=== PATIENT | male | born 1945 | race Caucasian/White ===

== ENCOUNTER 2023-04-08 12:44 | Inpatient (IN) | payer OTHER, BC ==
[~2023-04-08] VITALS: Ht 180.3 cm; Wt 92.7 kg
[2023-04-08 12:51] VITALS: BP_SYST 100; PULSE 82; RESP 18; TEMP 97.3; O2SAT 96
[2023-04-08 15:10] LABS: BASOPHILS % (AUTO) 0.4 % (0.0-2.0); EOSINOPHILS % (AUTO) 0.2 % (0.0-4.0); HEMATOCRIT 29.8 % (36-54); HEMOGLOBIN 10.5 g/dL (14.0-18.0); LYMPHOCYTES # (AUTO) 1.3 K/uL (1.0-5.5); LYMPHOCYTES % (AUTO) 12.2 % (20.5-51.5); MEAN CORPUSCULAR HEMOGLOBIN 33 pg (27-31); MEAN CORPUSCULAR HGB CONC 35 % (32-36); MEAN CORPUSCULAR VOLUME 92 fL (79.0-98.0); MONOCYTES # (AUTO) 0.7 K/uL (0.0-1.0); NEUTROPHILS # (AUTO) 8.8 K/uL (1.8-7.7); NEUTROPHILS % (AUTO) 81.2 % (40.0-70.0); PLATELET COUNT (AUTO) 370 K/uL (130-430); RED BLOOD CELL COUNT(AUTO) 3.24 MIL/uL (4.2-6.2); RED CELL DISTRIBUTION WIDTH 13.4 % (9.0-15.0); WHITE BLOOD COUNT (AUTO) 10.8 K/uL (4.8-10.8)
[2023-04-08 15:33] LABS: ALANINE AMINOTRANSFERASE 41 U/L (12-78); ALBUMIN 2.8 g/dL (3.4-4.8); ANION GAP 16 (5-15); ASPARTATE AMINOTRANSFERASE 17 U/L (10-37); BILIRUBIN,DIRECT 0.2 mg/dL (0.0-0.3); CALCIUM 9.7 mg/dL (8.4-11.0); CARBON DIOXIDE 19 mmol/L (23-29); CHLORIDE 105 mmol/L (98-107); CREATININE 2.55 mg/dL (0.55-1.30); GLUCOSE 147 mg/dL (74-106); POTASSIUM 4.1 mmol/L (3.5-5.1); SODIUM SERUM 140 mmol/L (136-145); TOTAL BILIRUBIN 0.7 mg/dL (0.0-1.0); TOTAL PROTEIN, SERUM 5.6 g/dL (6.4-8.3)
[2023-04-08] MEDS: NACL 0.9% 1,000 ML IV ONE (15:33)
[2023-04-08] MEDS ORDERED: PANTOPRAZOLE SODIUM 40 MG/VIAL (PROTONIX) ONE ×2 (15:41→18:00)
[2023-04-08 15:42] LABS: UREA NITROGEN, BLOOD 132 mg/dL (8-21)
[2023-04-08] MEDS: PANTOPRAZOLE SODIUM 80 MG in NS 100 ML IV ONE (15:57)
[2023-04-08] MEDS: NS 500 ML IV ONE (16:00)
[2023-04-08 16:11] LABS: INR 1.1 (0.80-1.20); PROTHROMBIN TIME 11.6 SECS (9.5-12.5)
[2023-04-08] MEDS ORDERED: DEXTROSE 50% JECT 50 ML DISP.SYRIN IVP PRN (17:30)
[2023-04-08] MEDS: METOCLOPRAMIDE HCL 10 MG/2 ML VIAL IVP ONE (18:00)
[2023-04-08] MEDS: ONDANSETRON HCL 4 MG/2 ML VIAL IVP PRN (18:11)
[2023-04-08] MEDS: MORPHINE 2 MG/ML INJ. SYRINGE IVP PRN (18:11)
[2023-04-08] MEDS: PANTOPRAZOLE SODIUM 40 MG in NS 50 ML IV SCH (18:12)
[2023-04-08] MEDS: NACL 0.9% 1,000 ML IV SCH (19:40)
[2023-04-08] MEDS ORDERED: METO-544 PO (20:05)
[2023-04-08] MEDS ORDERED: EMPA25TA PO (20:05)
[2023-04-08] MEDS ORDERED: METF-381 PO (20:05)
[2023-04-08] MEDS ORDERED: ATOR10TA68 PO (20:05)
[2023-04-08] MEDS ORDERED: BENA40TA89 PO (20:05)
[2023-04-08] MEDS ORDERED: FENO48TA8 PO (20:05)
[2023-04-08] MEDS ORDERED: SITA100T11 PO (20:05)
[2023-04-08] MEDS ORDERED: GLIP5TAB13 PO (20:05)
[2023-04-08] MEDS ORDERED: LATA2.5D14 LEFT EYE (20:05)
[2023-04-08] MEDS ORDERED: AMLO10TA88 PO (20:06)
[2023-04-08] MEDS ORDERED: METOPROLOL TARTRATE 25 MG TABLET PO SCH (21:00)
[2023-04-08 21:49] VITALS: BP_SYST 110; PULSE 65; RESP 18; TEMP 98.2; O2SAT 97
[2023-04-08] MEDS: PANTOPRAZOLE SODIUM 40 MG/VIAL (PROTONIX) ONE (22:40)
[2023-04-08] MEDS: ATORVASTATIN 20 MG TABLET PO SCH (22:53)
[2023-04-08] MEDS: cefTRIAXone 1 GM in D5W 50 ML IV SCH (23:13)
[2023-04-08] MEDS: METOCLOPRAMIDE HCL 10 MG/2 ML VIAL IVP SCH (23:14)
[2023-04-08] MEDS: ZOLPIDEM TARTRATE 5 MG TABLET PO PRN (23:40)
[2023-04-08] MEDS: cefTRIAXone 1 GM IVPB PREMIX 50 ML IV ONE (23:50)
[2023-04-09] VITALS (14 sets, daily range): BP systolic 96–141; PULSE 63–103; RESP 16–20; TEMP 96.3–98; O2SAT 95–100
[2023-04-09 01:12] LABS: BILIRUBIN,URINE NEGATIVE (NEGATIVE); BLOOD, URINE NEGATIVE (NEGATIVE); CLARITY/URINE CLEAR (CLEAR); COLOR,URINE YELLOW (YELLOW); GLUCOSE,URINE 3+ (NEGATIVE); KETONES,URINE NEGATIVE (NEGATIVE); LEUKOCYTE ESTERASE ,URINE NEGATIVE (NEGATIVE); NITRITE, URINE NEGATIVE (NEGATIVE); PH,URINE 5.5 (5.0-8.0); PROTEIN URINE NEGATIVE (NEGATIVE); UROBILINOGEN,URINE 0.2 (0.2-1.0)
[2023-04-09] MEDS: PANTOPRAZOLE SODIUM 40 MG/VIAL (PROTONIX) ONE ×3 (02:00→21:41)
[2023-04-09] MEDS: INSULIN LISPRO SLIDING SCALE 100 UNITS/ML, 3 ML VIAL (humaLOG) SUBCUT PRN (06:02)
[2023-04-09 07:10] LABS: ALANINE AMINOTRANSFERASE 41 U/L (12-78); ALBUMIN 2.7 g/dL (3.4-4.8); ANION GAP 9 (5-15); ASPARTATE AMINOTRANSFERASE 15 U/L (10-37); CALCIUM 9.1 mg/dL (8.4-11.0); CARBON DIOXIDE 22 mmol/L (23-29); CHLORIDE 110 mmol/L (98-107); CHOLESTEROL 84 mg/dL (<200); CREATININE 2.17 mg/dL (0.55-1.30); GLUCOSE 144 mg/dL (74-106); HDL CHOLESTEROL 30 mg/dL (>45); POTASSIUM 4.2 mmol/L (3.5-5.1); SODIUM SERUM 141 mmol/L (136-145); TOTAL BILIRUBIN 0.4 mg/dL (0.0-1.0); TOTAL PROTEIN, SERUM 5.1 g/dL (6.4-8.3); TRIGLYCERIDES 159 mg/dL (30-150)
[2023-04-09 08:32] LABS: UREA NITROGEN, BLOOD 125 mg/dL (8-21)
[2023-04-09] MEDS: TAMSULOSIN HCL 0.4 MG CAP PO SCH (09:00)
[2023-04-09 11:15] LABS: HEMATOCRIT 26.6 % (36-54); HEMOGLOBIN 8.9 g/dL (14.0-18.0); RED BLOOD CELL COUNT(AUTO) 2.79 MIL/uL (4.2-6.2)
[2023-04-09 11:16] LABS: BASOPHILS % (AUTO) 0.6 % (0.0-2.0); EOSINOPHILS # (AUTO) 0.1 K/uL (0.0-0.4); EOSINOPHILS % (AUTO) 0.5 % (0.0-4.0); LYMPHOCYTES # (AUTO) 1.5 K/uL (1.0-5.5); MEAN CORPUSCULAR HEMOGLOBIN 32 pg (27-31); MEAN CORPUSCULAR HGB CONC 33 % (32-36); MEAN CORPUSCULAR VOLUME 95 fL (79.0-98.0); MONOCYTES # (AUTO) 0.9 K/uL (0.0-1.0); MONOCYTES % (AUTO) 8.6 % (1.7-9.3); NEUTROPHILS # (AUTO) 8.4 K/uL (1.8-7.7); NEUTROPHILS % (AUTO) 76.3 % (40.0-70.0); PLATELET COUNT (AUTO) 302 K/uL (130-430); RED CELL DISTRIBUTION WIDTH 13.7 % (9.0-15.0)
[2023-04-09] MEDS: fentaNYL CITRATE/PF 100 MCG/2 ML AMP ONE (11:16)
[2023-04-09] MEDS: MIDAZOLAM HCL 5 MG/5 ML VIAL ONE (11:16)
[2023-04-09] MEDS: EPINEPHrine JECT 0.1 MG/ML SYR ONE (11:47)
[2023-04-09] MEDS: SIMETHICONE 40 MG/0.6 ML ML ONE (11:50)
[2023-04-09 12:10] LABS: HEMOGLOBIN A1C 8.07 % (<5.7)
[2023-04-09 15:34] LABS: BASOPHILS % (AUTO) 0.4 % (0.0-2.0); EOSINOPHILS % (AUTO) 0.3 % (0.0-4.0); HEMATOCRIT 22.7 % (36-54); HEMOGLOBIN 7.9 g/dL (14.0-18.0); LYMPHOCYTES # (AUTO) 0.9 K/uL (1.0-5.5); LYMPHOCYTES % (AUTO) 8.3 % (20.5-51.5); MEAN CORPUSCULAR HEMOGLOBIN 32 pg (27-31); MEAN CORPUSCULAR HGB CONC 35 % (32-36); MEAN CORPUSCULAR VOLUME 94 fL (79.0-98.0); MONOCYTES # (AUTO) 0.6 K/uL (0.0-1.0); MONOCYTES % (AUTO) 6.1 % (1.7-9.3); NEUTROPHILS # (AUTO) 9.1 K/uL (1.8-7.7); NEUTROPHILS % (AUTO) 84.9 % (40.0-70.0); PLATELET COUNT (AUTO) 303 K/uL (130-430); RED BLOOD CELL COUNT(AUTO) 2.43 MIL/uL (4.2-6.2); RED CELL DISTRIBUTION WIDTH 13.5 % (9.0-15.0); WHITE BLOOD COUNT (AUTO) 10.7 K/uL (4.8-10.8)
[2023-04-09 22:37] LABS: BASOPHILS % (AUTO) 0.2 % (0.0-2.0); EOSINOPHILS % (AUTO) 0.3 % (0.0-4.0); LYMPHOCYTES # (AUTO) 1.1 K/uL (1.0-5.5); LYMPHOCYTES % (AUTO) 10.7 % (20.5-51.5); MEAN CORPUSCULAR HEMOGLOBIN 33 pg (27-31); MEAN CORPUSCULAR HGB CONC 34 % (32-36); MEAN CORPUSCULAR VOLUME 95 fL (79.0-98.0); MONOCYTES # (AUTO) 0.8 K/uL (0.0-1.0); MONOCYTES % (AUTO) 7.7 % (1.7-9.3); NEUTROPHILS # (AUTO) 8.1 K/uL (1.8-7.7); NEUTROPHILS % (AUTO) 81.1 % (40.0-70.0); PLATELET COUNT (AUTO) 285 K/uL (130-430); RED BLOOD CELL COUNT(AUTO) 2.11 MIL/uL (4.2-6.2); RED CELL DISTRIBUTION WIDTH 13.8 % (9.0-15.0)
[2023-04-09 23:10] LABS: HEMOGLOBIN 6.9 g/dL (14.0-18.0)
[2023-04-10] VITALS (24 sets, daily range): BP systolic 97–151; PULSE 84–137; RESP 12–20; TEMP 97.1–98.3; O2SAT 96–100
[2023-04-10] MEDS: LORazepam 2 MG/ML VIAL IVP PRN (01:43)
[2023-04-10 09:50] LABS: BASOPHILS % (AUTO) 0.3 % (0.0-2.0); EOSINOPHILS % (AUTO) 0.2 % (0.0-4.0); HEMOGLOBIN 9.6 g/dL (14.0-18.0); LYMPHOCYTES # (AUTO) 0.9 K/uL (1.0-5.5); LYMPHOCYTES % (AUTO) 8.2 % (20.5-51.5); MEAN CORPUSCULAR HEMOGLOBIN 32 pg (27-31); MEAN CORPUSCULAR HGB CONC 34 % (32-36); MEAN CORPUSCULAR VOLUME 94 fL (79.0-98.0); MONOCYTES # (AUTO) 0.8 K/uL (0.0-1.0); MONOCYTES % (AUTO) 7.9 % (1.7-9.3); NEUTROPHILS # (AUTO) 8.6 K/uL (1.8-7.7); NEUTROPHILS % (AUTO) 83.4 % (40.0-70.0); PLATELET COUNT (AUTO) 285 K/uL (130-430); RED BLOOD CELL COUNT(AUTO) 2.97 MIL/uL (4.2-6.2); RED CELL DISTRIBUTION WIDTH 14.3 % (9.0-15.0); WHITE BLOOD COUNT (AUTO) 10.4 K/uL (4.8-10.8)
[2023-04-10 09:56] LABS: ANION GAP 7 (5-15); CALCIUM 8.7 mg/dL (8.4-11.0); CARBON DIOXIDE 22 mmol/L (23-29); CREATININE 1.58 mg/dL (0.55-1.30); GLUCOSE 219 mg/dL (74-106); POTASSIUM 4.3 mmol/L (3.5-5.1); SODIUM SERUM 149 mmol/L (136-145); UREA NITROGEN, BLOOD 92 mg/dL (8-21)
[2023-04-10 09:58] LABS: CHLORIDE 120 mmol/L (98-107)
[2023-04-10] MEDS: 0.45% NACL 1,000 ML IV SCH (10:30)
[2023-04-10 13:32] LABS: BASOPHILS % (AUTO) 0.3 % (0.0-2.0); EOSINOPHILS % (AUTO) 0.1 % (0.0-4.0); HEMATOCRIT 26.9 % (36-54); HEMOGLOBIN 9.1 g/dL (14.0-18.0); LYMPHOCYTES # (AUTO) 0.9 K/uL (1.0-5.5); LYMPHOCYTES % (AUTO) 8.4 % (20.5-51.5); MEAN CORPUSCULAR HEMOGLOBIN 32 pg (27-31); MEAN CORPUSCULAR HGB CONC 34 % (32-36); MEAN CORPUSCULAR VOLUME 95 fL (79.0-98.0); MONOCYTES # (AUTO) 0.9 K/uL (0.0-1.0); MONOCYTES % (AUTO) 8.4 % (1.7-9.3); NEUTROPHILS # (AUTO) 9.2 K/uL (1.8-7.7); NEUTROPHILS % (AUTO) 82.8 % (40.0-70.0); PLATELET COUNT (AUTO) 285 K/uL (130-430); RED BLOOD CELL COUNT(AUTO) 2.83 MIL/uL (4.2-6.2); RED CELL DISTRIBUTION WIDTH 14.3 % (9.0-15.0); WHITE BLOOD COUNT (AUTO) 11.1 K/uL (4.8-10.8)
[2023-04-10] MEDS: ALPRAZolam 0.25 MG TABLET PO ONE (20:24)
[2023-04-10] MEDS: PANTOPRAZOLE SODIUM 40 MG in NS 50 ML IV SCH (21:56)
[2023-04-10 22:04] LABS: BASOPHILS % (AUTO) 0.3 % (0.0-2.0); EOSINOPHILS % (AUTO) 0.1 % (0.0-4.0); HEMATOCRIT 24.5 % (36-54); HEMOGLOBIN 8.4 g/dL (14.0-18.0); LYMPHOCYTES # (AUTO) 1.2 K/uL (1.0-5.5); LYMPHOCYTES % (AUTO) 13.3 % (20.5-51.5); MEAN CORPUSCULAR HEMOGLOBIN 33 pg (27-31); MEAN CORPUSCULAR HGB CONC 34 % (32-36); MEAN CORPUSCULAR VOLUME 95 fL (79.0-98.0); MONOCYTES # (AUTO) 0.8 K/uL (0.0-1.0); MONOCYTES % (AUTO) 8.6 % (1.7-9.3); NEUTROPHILS # (AUTO) 7.2 K/uL (1.8-7.7); NEUTROPHILS % (AUTO) 77.7 % (40.0-70.0); PLATELET COUNT (AUTO) 250 K/uL (130-430); RED BLOOD CELL COUNT(AUTO) 2.58 MIL/uL (4.2-6.2); RED CELL DISTRIBUTION WIDTH 14.3 % (9.0-15.0); WHITE BLOOD COUNT (AUTO) 9.2 K/uL (4.8-10.8)
[2023-04-11] VITALS (22 sets, daily range): BP systolic 109–149; PULSE 89–122; RESP 14–22; TEMP 97.1–98.5; O2SAT 94–99
[2023-04-11 05:38] LABS: BASOPHILS % (AUTO) 0.1 % (0.0-2.0); EOSINOPHILS % (AUTO) 0.2 % (0.0-4.0); HEMOGLOBIN 8.1 g/dL (14.0-18.0); LYMPHOCYTES # (AUTO) 1.5 K/uL (1.0-5.5); LYMPHOCYTES % (AUTO) 11.4 % (20.5-51.5); MEAN CORPUSCULAR HEMOGLOBIN 33 pg (27-31); MEAN CORPUSCULAR HGB CONC 34 % (32-36); MEAN CORPUSCULAR VOLUME 96 fL (79.0-98.0); MONOCYTES # (AUTO) 1.1 K/uL (0.0-1.0); MONOCYTES % (AUTO) 8.1 % (1.7-9.3); NEUTROPHILS # (AUTO) 10.4 K/uL (1.8-7.7); NEUTROPHILS % (AUTO) 80.2 % (40.0-70.0); PLATELET COUNT (AUTO) 284 K/uL (130-430); RED BLOOD CELL COUNT(AUTO) 2.49 MIL/uL (4.2-6.2); RED CELL DISTRIBUTION WIDTH 14.7 % (9.0-15.0)
[2023-04-11 10:14] LABS: ALANINE AMINOTRANSFERASE 33 U/L (12-78); ALBUMIN 2.5 g/dL (3.4-4.8); ANION GAP 12 (5-15); ASPARTATE AMINOTRANSFERASE 16 U/L (10-37); CALCIUM 8.7 mg/dL (8.4-11.0); CARBON DIOXIDE 21 mmol/L (23-29); CREATININE 1.44 mg/dL (0.55-1.30); GLUCOSE 247 mg/dL (74-106); POTASSIUM 3.8 mmol/L (3.5-5.1); SODIUM SERUM 155 mmol/L (136-145); TOTAL BILIRUBIN 0.4 mg/dL (0.0-1.0); TOTAL PROTEIN, SERUM 5.1 g/dL (6.4-8.3); UREA NITROGEN, BLOOD 68 mg/dL (8-21)
[2023-04-11 10:20] LABS: CHLORIDE 122 mmol/L (98-107)
[2023-04-11] MEDS: D5W 1,000 ML IV SCH (11:55)
[2023-04-11 15:03] LABS: BASOPHILS % (AUTO) 0.3 % (0.0-2.0); EOSINOPHILS % (AUTO) 0.4 % (0.0-4.0); HEMOGLOBIN 7.1 g/dL (14.0-18.0); LYMPHOCYTES % (AUTO) 10.5 % (20.5-51.5); MEAN CORPUSCULAR HEMOGLOBIN 33 pg (27-31); MEAN CORPUSCULAR HGB CONC 34 % (32-36); MEAN CORPUSCULAR VOLUME 96 fL (79.0-98.0); MONOCYTES # (AUTO) 0.8 K/uL (0.0-1.0); MONOCYTES % (AUTO) 7.8 % (1.7-9.3); NEUTROPHILS # (AUTO) 7.8 K/uL (1.8-7.7); PLATELET COUNT (AUTO) 270 K/uL (130-430); RED BLOOD CELL COUNT(AUTO) 2.16 MIL/uL (4.2-6.2); RED CELL DISTRIBUTION WIDTH 14.5 % (9.0-15.0); WHITE BLOOD COUNT (AUTO) 9.6 K/uL (4.8-10.8)
[2023-04-11 15:08] LABS: HEMATOCRIT 20.7 % (36-54)
[2023-04-11] MEDS ORDERED: *PPN PER PHARMACY XX PRN (16:30)
[2023-04-11] MEDS ORDERED: DEXTROSE 50% JECT 50 ML DISP.SYRIN IVP PRN (16:30)
[2023-04-11 17:44] LABS: ANION GAP 10 (5-15); CALCIUM 8.5 mg/dL (8.4-11.0); CARBON DIOXIDE 21 mmol/L (23-29); CREATININE 1.51 mg/dL (0.55-1.30); GLUCOSE 298 mg/dL (74-106); POTASSIUM 3.7 mmol/L (3.5-5.1); SODIUM SERUM 152 mmol/L (136-145); UREA NITROGEN, BLOOD 56 mg/dL (8-21)
[2023-04-11 17:45] LABS: INR 1.1 (0.80-1.20); PROTHROMBIN TIME 11.5 SECS (9.5-12.5)
[2023-04-11 17:47] LABS: CHLORIDE 121 mmol/L (98-107)
== END 2023-04-11 19:40 | disposition short-term general hospital (02) | DRG 377 ==
LOC: SED 12:44 → STU 15:59 → SIC 04-09 13:20 → SMU 04-10 09:43 → SIC 04-10 10:01
PROVIDERS: ADMIT Internal Medicine; ATTEND Internal Medicine
PROC: 30233N1 Transfusion of Nonautologous Red Blood Cells into Peripheral Vein, Percutaneous Approach (ICD-10-PCS; principal; 2023-04-09 10:45)
PROC: 0DJ08ZZ Inspection of Upper Intestinal Tract, Via Natural or Artificial Opening Endoscopic (ICD-10-PCS; 2023-04-09 10:45)
DX: K26.0 Acute duodenal ulcer with hemorrhage (principal); N17.0 Acute kidney failure with tubular necrosis; R65.11 Systemic inflammatory response syndrome (SIRS) of non-infectious origin with acute organ dysfunction; K22.10 Ulcer of esophagus without bleeding; E44.0 Moderate protein-calorie malnutrition; I25.10 Atherosclerotic heart disease of native coronary artery without angina pectoris; Z20.822 Contact with and (suspected) exposure to COVID-19; I12.9 Hypertensive chronic kidney disease with stage 1 through stage 4 chronic kidney disease, or unspecified chronic kidney disease; K44.9 Diaphragmatic hernia without obstruction or gangrene; E11.22 Type 2 diabetes mellitus with diabetic chronic kidney disease; N18.31 Chronic kidney disease, stage 3a; Z95.1 Presence of aortocoronary bypass graft; Z79.899 Other long term (current) drug therapy; Z68.28 Body mass index [BMI] 28.0-28.9, adult
CPT/HCPCS: 36415; 43236; 43255; 71045; 76376; 80048; 80053; 80061; 80076; 81001; 81003; 82948; 83037; 83605; 83690; 83880; 84443; 85025; 85610; 85730; 86886; 86900; 86901; 86920; 93005; 93306; 96365; 96375; 99291; C9113; G0378; J0171; J0696; J2060; J2250; J2270; J2405; J2765; J3010; J7060; P9021